=== PATIENT | male | born 1930 | race Caucasian/White ===

== ENCOUNTER 2017-06-20 11:51 | Inpatient (IN) | payer MEDICARE ==
[2017-06-20 12:46] LABS: #Basophils 0.1 thou/uL (0.0-0.2); #Eosinphils 0.1 thou/uL (0.0-0.7); #Lymphocytes 2.1 thou/uL (1.20-3.40); #Monocytes 1.2 thou/uL (0.11-0.59); #Neutrophils 5.7 thou/uL (1.40-6.50); %Basophils 0.6 % (0.0-1.0); %Eosinophils 1.3 % (0.0-10.0); %Lymphocytes 22.7 % (21.0-51.0); %Monocytes 13.3 % (0.0-10.0); %Neutrophils 62.1 % (42.0-75.0); Hemoglobin 15.8 g/dL (14.0-18.0); Mean Corpuscular HGB CONC 33.7 g/dL (32.0-36.0); Mean Corpuscular Hemoglobin 31.2 pg (27.0-31.0); Mean Corpuscular Volume 92.5 fl (80.0-94.0); Mean Platelet Volume 7.1 fL (7.4-10.4); Platelet Count 283 thou/uL (130-400); RBC Distribution Width 12.9 % (11.5-14.5); Red Blood Cell (RBC) Count 5.07 mill/uL (4.70-6.10); White Blood Cell (WBC) Count 9.2 thou/uL (4.8-10.8)
[2017-06-20 13:12] LABS: ALT (SGPT) 11 U/L (8-55); AST (SGOT) 16 U/L (5-34); Albumin 4.1 g/dL (3.4-4.8); Alkaline Phosphatase 102 U/L (40-150); Anion Gap 10 mmol/L (10-20); BUN (Urea Nitrogen) 17 mg/dL (8.4-25.7); Bilirubin, Total 0.6 mg/dL (0.2-1.2); Calc. Creatinine Clearance 0 mL/min (70-130); Calcium 9.7 mg/dL (7.8-10.44); Carbon Dioxide 27 mmol/L (23-31); Chloride 102 mmol/L (98-107); Estimated GFR-MDRD 56; Globulin 3.6 g/dL (2.4-3.5); Glucose 101 mg/dL (83-110); Potassium 4.3 mmol/L (3.5-5.1); Protein, Total 7.7 g/dL (5.8-8.1); Sodium 135 mmol/L (136-145)
--- NOTE | 2017-06-20 15:16 | RAD ---
LEFT HAND THREE VIEWS: History: Left hand pain. Infection. FINDINGS: There is mild joint space narrowing, osteophytosis, and subchondral sclerosis throughout the wrist an d hand, most pronounced at the first carpal metacarpal joint. Subcortical cyst is present at the dist al ulna. Ulnar styloid is intact. Subcortical cysts also involves the lunate on the oblique view. No acute fracture, dislocation, or aggressive osseous erosions are apparent. No soft tissue gas is visib le. Tiny well corticated calcific density overlies the palmar soft tissues on the lateral view, favor ed to be a the level of the proximal fourth metacarpal shaft. This may reflect an old imbedded foreig n body or nonspecific soft tissue calcification. IMPRESSION: Mild osteoarthritic changes left hand. No aggressive osseous destruction is apparent. POS: HILLARY
--- NOTE | 2017-06-20 15:23 | HP ---
PRIMARY CARE PROVIDER: Dr. Monica Johns. Referred to the [facility] by [facility]. HISTORY OF PRESENT ILLNESS: The patient had a minor trauma 2 weeks ago to the dorsum of his left sandra d. The injury healed, then 2 weeks ago, a wound opened up. He has had a combination of antibiotic o intment, oral cephalexin then clindamycin orally. He has had no fever, chills or sweats. He does cardozo ve pain in his left hand with motion. He was seen by his PCP today who referred him to [facility] ergency Department who referred him to [facility]. PAST MEDICAL HISTORY: None. MEDICATIONS: None. ALLERGIES TO MEDICINES: None. 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 FAMILY HISTORY: Mother of old age. Father of old age. SOCIAL HISTORY: x67 years. FULL CODE. , next of kin at bedside along with daughter and [id number]. TOBACCO: None. ALCOHOL: Occasional beer. REVIEW OF SYSTEMS: GENERAL: No headaches, dizziness or fainting. EYES: He has poor vision because his eyelids droop. No double vision or flashing lights. EAR, NOSE, AND THROAT: No ear pain or alfonso inage. No nasal bleeding. No trouble swallowing. CARDIAC: No chest pain, orthopnea or paroxysmal nocturnal dyspnea. RESPIRATORY: No cough, wheezing or asthma. GASTROINTESTINAL: No nausea, vomiti ng, abdominal pain, diarrhea, constipation or melena. GENITOURINARY: No hematuria, dysuria. MUSCUL OSKELETAL: No pain or swelling in his legs or his right arm. PSYCHIATRIC: No anxiety, depression. NEUROLOGIC: No history of strokes, seizures or focal weakness. SKIN: The aforementioned area of o pen wound and infection on his left hand. HEME/LYMPH: No tender or swollen lymph nodes in axilla, i nguinal or cervical area. PHYSICAL EXAMINATION: GENERAL: He is an alert, oriented, cooperative gentleman in no distress whatsoever and making jokes with me. VITAL SIGNS: Blood pressure 135/88, pulse 75, respirations 20, temperature 97.9 and 98.4. HEENT: Examination of his head, eyes, ears, nose, and throat reveal pupils are equal, round, reactiv e with bilateral arcus, sclerae white. Extraocular movements are intact. Tympanic membranes clear. Nose is clear. Throat is clear. NECK: Supple, without jugular venous distention, adenopathy or thyromegaly. CHEST: Clear to auscultation and percussion. HEART: Regular rate and rhythm. First and second heart sounds are clear. There are no appreciated murmurs or gallops. ABDOMEN: Soft, bowel sounds are normal. There is no hepatosplenomegaly, no mass, no rebound. EXTREMITIES: Reveal no cyanosis, clubbing or edema. PULSES: Carotid, radial, femoral, and dorsalis pedis pulses intact. SKIN: Warm and dry. He has a lesion on the dorsum of his left hand. This is erythematous and swoll en about 3 inches in diameter with multiple denuded areas. There are some small areas of skin i n the middle of the wound. NEUROLOGIC: Cranial nerves II-XII are intact. Deep tendon reflexes symmetric. Moves all extremitie s. LABORATORY DATA AND X-RAY FINDINGS: Fairly unremarkable. Comp metabolic profile reveals only sodium 135, otherwise normal. CBC is normal. No x-rays or EKGs were presented except for a hand x-ray wit h mild degenerative change. I see no evidence of lytic or erosive lesions. ADMITTING DIAGNOSIS: Cellulitis/abscess of the left hand, refractory to outpatient antibiotic therap y. Blood cultures have been drawn in the emergency room. I have started him on a combination of cef epime 2 grams q.12 hours and vancomycin 1 gram q.12 hours to be monitored by pharmacy. I have discus sed this case with Dr. Cesar who will see him in consultation.
[2017-06-20 15:28] VITALS: BMI 23.6
[2017-06-20] MEDS ORDERED: Zolpidem Tartrate 5 MG TAB PO PRN (15:33)
[2017-06-20] MEDS ORDERED: Ondansetron HCl/PF 4 MG/2 ML Vial IVP PRN (15:33)
[2017-06-20] MEDS ORDERED: Acetaminophen 325 MG TAB PO PRN (15:33)
[2017-06-20] MEDS ORDERED: CEFEPIME IVPB PRN (16:37)
[2017-06-20] MEDS: Cefepime 2 GM, Syringe 2.5 ML in Sodium Chloride 0.9% 10 ML SLOW IVP SCH (16:58)
--- NOTE | 2017-06-20 17:14 | CON ---
DATE OF CONSULTATION: 06/20/2017 REASON FOR CONSULTATION: Left hand infection. HISTORY OF PRESENT ILLNESS: This is an 87-year-old, first admission to [facility] with a history of no past medical problems except for osteoarthritis, who sustained an injury to his left hand from a barbed wire about 4 weeks ago, and then 2 weeks ago, noticed a progressively worsening wound with initially itching and then pain, redness, swelling, and drainage. The patient failed outpatient oral antimicrobial therapy with Bactrim, cephalexin, and clindamycin, and has been admitted for management. He has been started on broad-spectrum coverage with intravenous cefepime and vancomycin. No headaches, visual symptoms, sore throat, odynophagia, dysphagia, no cough or sputum production or chest pain. No abdominal pain, diarrhea, or genitourinary symptoms. No other joint symptoms. No neurological symptoms. PAST MEDICAL HISTORY: Otherwise, negative except for osteoarthritis, prior right knee replacement. ALLERGIES: None. FAMILY HISTORY: Noncontributory. No disease in the family. SOCIAL HISTORY: Never a smoker. Occasional beer drinker. PHYSICAL EXAMINATION: VITAL SIGNS: Normal. SKIN EXAM: Shows the area of erythema, plaque-like distribution, in the left hand dorsal aspect with areas of ulceration and a serosanguineous drainage, which is moderate. The lesion encompasses about half of the dorsal aspect of left hand towards the thumb, second and third digits. No lymphadenopathy. HEENT EXAM: Noncontributory. NECK: Supple. LUNGS: Clear to auscultation and percussion. HEART: S1 and S2, regular rate. ABDOMEN: Soft, not distended or tender. No ascites. No bladder distention. EXTREMITIES: Moves all extremities equally. Limitations imposed by the left hand inflammatory process. He has a hearing impairment, but otherwise cognitive function is normal. LABORATORY DATA: His chemistry is fairly unremarkable, and the CBC is fairly unremarkable with a normal differential except for some monocytosis. No other tests have been submitted. He had a CT abdomen and pelvis from 04/2013 with calcifications, left and right diaphragmatic leaflets; calculi, left kidney, nonobstructing; and some prostatic hypertrophy. ASSESSMENT: A fairly healthy 87-year-old man, who has known chronic infection, left hand, following injury 4 weeks ago. DISCUSSION: Differential diagnosis includes usual bacterial pathogens such as Staphylococcus aureus/MRSA, gram negative rods, Streptococci, but the main concern here is with an atypical pathogen such as one of the atypical mycobacterial pathogens and fungal organisms. An atypical mycobacteria would be the main concern. Swab samples are not useful for diagnosis of mycobacterial infections and we would need a tissue sample, and we will have evaluation by a hand surgeon to see if he is not going to need I and D until obtained some tissue sampling for mycobacterial cultures and fungal cultures. We will submit a routine sample for routine bacterial cultures. RAHUL
[2017-06-20] MEDS ORDERED: Cefepime 2 GM in Sodium Chloride 0.9% 100 ML IVPB SCH (21:00)
[2017-06-20] MEDS ORDERED: Vancomycin HCl 1 GM in Sodium Chloride 0.9% 250 ML 250 ML IVPB SCH (21:00)
[2017-06-21] MEDS: Cefepime 2 GM, Syringe 2.5 ML in Sodium Chloride 0.9% 10 ML SLOW IVP SCH ×2 (04:50→15:41)
--- NOTE | 2017-06-21 08:32 | PDOC.PN ---
- Subjective Encounter Start Date: 06/21/17 Encounter Start Time: 08:30 Subjective: no complaints - Objective Resuscitation Status: Resuscitation Status FULL:Full Resuscitation MAR Reviewed: Yes Vital Signs & Weight: Vital Signs (12 hours) Temp Pulse Resp BP Pulse Ox 06/21/17 04:44 98.5 F 71 20 110/67 95 06/21/17 00:46 98.0 F 76 20 122/71 97 Result Diagrams: 06/20/17 12:28 06/20/17 12:28 Phys Exam - Physical Examination Neck: no JVD Respiratory: clear to auscultation bilateral Cardiovascular: RRR, no significant murmur Gastrointestinal: soft, non-tender Musculoskeletal: no edema bandaged left hand Dx/Plan (1) Cellulitis and abscess of hand Code(s): L03.119 - CELLULITIS OF UNSPECIFIED PART OF LIMB; L02.519 - CUTANEOUS ABSCESS OF UNSPECIFIED HAND Status: Acute - Plan hand surgery tody with Bx -: cont vancomycin,cefepime iv * .
[2017-06-21] MEDS ORDERED: Enoxaparin Sodium 40 MG/0.4 ML SYRINGE SC SCH (09:00)
[2017-06-21] MEDS ORDERED: Vancomycin HCl 1.25 GM in Sodium Chloride 0.9% 250 ML 250 ML IVPB SCH (13:00)
[2017-06-21] MEDS ORDERED: Ondansetron HCl/PF 4 MG/2 ML Vial ONE (17:17)
[2017-06-21] MEDS ORDERED: PROPOFOL 200 MG/20 ML VIAL ONE (17:17)
[2017-06-21] MEDS ORDERED: Dexamethasone 20 MG/5 ML VIAL ONE (17:17)
[2017-06-21] MEDS ORDERED: Bupivacaine 0.5% 10 ML VIAL ONE (17:21)
[2017-06-21] MEDS ORDERED: Lidocaine 1% w/Epinephrine 1:200K 30 ML VIAL ONE (17:21)
[2017-06-21] MEDS ORDERED: Bacitracin Zinc Ointment 30 gm TUBE ONE (17:21)
[2017-06-21] MEDS ORDERED: Thrombin 5000 UNITS/5 ML VIAL ONE (17:21)
[2017-06-21] MEDS ORDERED: Sodium Chloride 0.9% 30 ML ONE (17:22)
[2017-06-21] MEDS ORDERED: Meperidine HCl/PF 25 MG/ML VIAL ONE (17:48)
[2017-06-21] MEDS ORDERED: Fentanyl 250 MCG/5 ML VIAL ONE (19:13)
[2017-06-21] MEDS ORDERED: Promethazine HCl 25 MG/ML VIAL SLOW IVP PRN (19:17)
[2017-06-21] MEDS ORDERED: Ondansetron HCl/PF 4 MG/2 ML Vial IVP PRN (19:17)
[2017-06-21] MEDS ORDERED: Promethazine HCl 25 MG/ML VIAL IM PRN (19:17)
[2017-06-21] MEDS ORDERED: Ondansetron HCl/PF 4 MG/2 ML Vial IV PRN (19:39)
[2017-06-21] MEDS ORDERED: traMADol HCl 50 MG TAB PO PRN (19:39)
[2017-06-21] MEDS ORDERED: Milk Of Magnesia 30 ML UDCUP PO PRN (19:39)
[2017-06-21] MEDS ORDERED: HYDROcodone/Acetaminophen 10/325 mg Tablet PO PRN (19:39)
[2017-06-21] MEDS ORDERED: Communication Order-Pharmacy FS SCH (19:45)
[2017-06-21] MEDS: Morphine 5 MG/ML SYRINGE IVP PRN (20:29)
[2017-06-21] MEDS: HYDROcodone/Acetaminophen 5/325 mg Tablet PO PRN (22:56)
[2017-06-21] MEDS: Ketorolac Tromethamine 30 MG/ML VIAL IVP SCH (23:58)
[2017-06-22] MEDS: Cefepime 2 GM, Syringe 2.5 ML in Sodium Chloride 0.9% 10 ML SLOW IVP SCH ×2 (04:55→16:02)
[2017-06-22 05:26] LABS: #Lymphocytes 0.9 thou/uL (1.20-3.40); #Monocytes 0.3 thou/uL (0.11-0.59); #Neutrophils 5.6 thou/uL (1.40-6.50); %Basophils 0.2 % (0.0-1.0); %Eosinophils 0.2 % (0.0-10.0); %Lymphocytes 13.2 % (21.0-51.0); %Monocytes 4.4 % (0.0-10.0); %Neutrophils 82.1 % (42.0-75.0); Hemoglobin 13.7 g/dL (14.0-18.0); Mean Corpuscular HGB CONC 33.6 g/dL (32.0-36.0); Mean Corpuscular Hemoglobin 31.8 pg (27.0-31.0); Mean Corpuscular Volume 94.6 fl (80.0-94.0); Mean Platelet Volume 7.7 fL (7.4-10.4); Platelet Count 274 thou/uL (130-400); RBC Distribution Width 12.6 % (11.5-14.5); Red Blood Cell (RBC) Count 4.31 mill/uL (4.70-6.10); White Blood Cell (WBC) Count 6.8 thou/uL (4.8-10.8)
[2017-06-22 05:28] LABS: INR-International Normal Ratio 1.1; Prothrombin Time 14.3 SEC (12.0-14.7)
[2017-06-22 05:58] LABS: ALT (SGPT) 8 U/L (8-55); AST (SGOT) 15 U/L (5-34); Albumin 3.4 g/dL (3.4-4.8); Alkaline Phosphatase 83 U/L (40-150); Anion Gap 11 mmol/L (10-20); BUN (Urea Nitrogen) 18 mg/dL (8.4-25.7); Bilirubin, Total 0.4 mg/dL (0.2-1.2); Calc. Creatinine Clearance 62 mL/min (70-130); Calcium 8.7 mg/dL (7.8-10.44); Carbon Dioxide 23 mmol/L (23-31); Chloride 103 mmol/L (98-107); Estimated GFR-MDRD 82; Globulin 2.8 g/dL (2.4-3.5); Glucose 143 mg/dL (83-110); Protein, Total 6.2 g/dL (5.8-8.1); Sodium 132 mmol/L (136-145)
[2017-06-22] MEDS: Ketorolac Tromethamine 30 MG/ML VIAL IVP SCH ×3 (06:07→17:48)
--- NOTE | 2017-06-22 06:36 | OP ---
PREOPERATIVE DIAGNOSES: Left dorsal hand abscess and abscess cavity, finding the abscess cavity with marked necrotic skin, dermis, epidermis, and fat. No necrotic tendons. Most of the paratenon intac t even after debridement. POSTOPERATIVE DIAGNOSES: Left dorsal hand abscess and abscess cavity, finding the abscess cavity wit h marked necrotic skin, dermis, epidermis, and fat. No necrotic tendons. Most of the paratenon inta ct even after debridement. PROCEDURE PERFORMED: Deep debridement of wound, left hand abscess cavity, approximately 8.5 cm x 6 c m with cheesy caseating-appearing necrotic tissue. SPECIMEN SENT: Abscess cavity. Multiple specimens to include AFB, fungus, aerobic, and anaerobic. ESTIMATED BLOOD LOSS: 100 mL. INDICATIONS: The patient reports that over a month ago, he had some type of penetrating wound while in the outside environment, perhaps in water, and 2 weeks later he noticed infection for which he was treated with oral antibiotics for 7 days, but the infection persisted. He noticed the wound opened and started draining exudate 2 days prior to admission. He had already been treated with antibiotics and this had failed. DESCRIPTION OF PROCEDURE: After successful general LMA technique MAC anesthesia, the patient had had the limb prepped and draped. Of note, the patient had been placed on Lovenox while here in the hosp ital for over 24 hours. We found what appeared to be the soft tissue, there was necrotic edge, opened this to include a very thick 4 mm abscess cavity circumferentially in this entire 8.5 x 6 cm area overlying tendons and cut aneous nerves. We then attempted to save as many cutaneous nerves that were still visible, stripped and debrided the deep abscess cavity using a combination of techniques: A. Excisional technique. B . We used a Bowman blade, a 11-blade knife, tenotomy scissors, Adson, and curette. C. We went down to the paratenon, but did not violate it, and that was our depth; indeed we had multiple caseating-t ype necrotic material. Once we had finished the debridement, and had a rim of only normal tissue underneath which was no fat necrosis or abscess cavity, the entire wound was now 8.5 x 6 cm. We irrigated this with 3 liters of normal saline with antibiotics inside and Pulsavac pressure. We then released the tourniquet, which was inflated for a total of 18 minutes and obtained hemostasis, but because he had been on Lovenox, this involved multiple uses of clamps, clips, and then being applied. We then obtained hemosta sis, placed thrombin-soaked Gelfoam on the wound, Adaptic, 4 x 4s, Kerlix, ABD, and Donnie wrap. The pa tient left the operating room without complication.
--- NOTE | 2017-06-22 08:55 | PDOC.PN ---
- Subjective Encounter Start Date: 06/22/17 Encounter Start Time: 08:52 Subjective: ready to go home - Objective Resuscitation Status: Resuscitation Status FULL:Full Resuscitation MAR Reviewed: Yes Vital Signs & Weight: Vital Signs (12 hours) Temp Pulse Resp BP Pulse Ox 06/22/17 06:21 97.3 F L 66 16 117/60 97 06/22/17 00:05 77 94 L 06/22/17 00:00 98.7 F 69 16 116/61 95 06/21/17 22:16 85 125/64 92 L 06/21/17 21:15 82 16 108/65 96 Result Diagrams: 06/22/17 04:36 06/22/17 04:36 Phys Exam - Physical Examination Neck: no JVD Respiratory: clear to auscultation bilateral Cardiovascular: RRR, no significant murmur Gastrointestinal: soft, positive bowel sounds Musculoskeletal: no edema L hand bandaged Dx/Plan (1) Cellulitis and abscess of hand Code(s): L03.119 - CELLULITIS OF UNSPECIFIED PART OF LIMB; L02.519 - CUTANEOUS ABSCESS OF UNSPECIFIED HAND Status: Acute - Plan * .
--- NOTE | 2017-06-22 08:56 | PDOC.EVN ---
Event Note - Event Note Event Note: missed plan on PN1. cont iv antibx,2. cont wound care, 3. discuss with ID
[2017-06-22] MEDS ORDERED: TETANUS AND DIPHTHERIA TOX/PF 0.5 ML DISP.SYRIN IM SCH (09:00)
[2017-06-22] MEDS: Vancomycin HCl 1.25 GM in Sodium Chloride 0.9% 250 ML 250 ML IVPB SCH (13:43)
[2017-06-22] MEDS ORDERED: TETANUS AND DIPHTHERIA TOX/PF 0.5 ML DISP.SYRIN IM ONE (16:30)
[2017-06-22] MEDS: Morphine 5 MG/ML SYRINGE IVP PRN (17:48)
[2017-06-23] MEDS: Ketorolac Tromethamine 30 MG/ML VIAL IVP SCH (00:28)
[2017-06-23] MEDS: Vancomycin HCl 1.25 GM in Sodium Chloride 0.9% 250 ML 250 ML IVPB SCH ×2 (01:26→12:21)
[2017-06-23] MEDS: Cefepime 2 GM, Syringe 2.5 ML in Sodium Chloride 0.9% 10 ML SLOW IVP SCH ×2 (05:10→17:53)
--- NOTE | 2017-06-23 06:37 | PRG ---
DATE OF SERVICE: 06/22/2017 HISTORY: Mr. Garber is sitting by the bedside, he is very alert, awake, better spirits today. The patient had surgical intervention. He denies any headaches, no respiratory symptoms, no abdominal pa in. PHYSICAL EXAMINATION: VITAL SIGNS: Temperature has been normal throughout the hospital stay. Other vital signs are not re markable. O2 sats are little bit down to 94%. GENERAL: In no distress. LUNGS: Clear. HEART: S1, S2, regular rate. ABDOMEN: Soft. EXTREMITIES: Left hand with bulky dressing which was not removed. LABORATORY DATA: White cell count 6.8, hemoglobin 13.7, platelets 274, 82% neutrophils. Chemistry w as fairly unremarkable, slight hyponatremia. Microbiology: All the samples submitted for routine AF B and fungal cultures pending. The Gram stain from the hand drainage; no WBCs seen, no epithelial ce lls, no organisms seen. The pathology from the surgical specimen is pending. The operative note was reviewed by Dr. Allison. There is necrotic edge of the soft tissues. This w as opened to include a very thick abscess cavity and the entire 8.5 x 6 cm area overlying tendon and cutaneous nerves, normal tissue was left on the knees. No evidence of fat necrosis after debridement . This was irrigated and the area was covered. ASSESSMENT AND DISCUSSION: Chronic infection left hand status post surgical debridement. We will co ntinue following culture results. Continue current antimicrobial therapy. Follow up pathology and t hen define a subsequent regimen. AFB cultures may take weeks for results to be available, evidently if we have other quicker results available for pyogenic organisms then I will adjust therapy accordin gly.
--- NOTE | 2017-06-23 11:55 | PDOC.PN ---
- Subjective Encounter Start Date: 06/23/17 Encounter Start Time: 11:50 Subjective: FINE - Objective Resuscitation Status: Resuscitation Status FULL:Full Resuscitation MAR Reviewed: Yes Vital Signs & Weight: Vital Signs (12 hours) Temp Pulse Resp BP Pulse Ox 06/23/17 08:00 97.6 F 66 16 134/84 96 Weight Admit Weight 169 lb Weight 169 lb I&O: 06/22/17 06/23/17 06/24/17 06:59 06:59 06:59 Intake Total 450 Balance 450 Result Diagrams: 06/22/17 04:36 06/22/17 04:36 Phys Exam - Physical Examination Neck: no JVD Respiratory: clear to auscultation bilateral Cardiovascular: RRR, no significant murmur Gastrointestinal: soft, non-tender Musculoskeletal: no edema Dx/Plan (1) Cellulitis and abscess of hand Code(s): L03.119 - CELLULITIS OF UNSPECIFIED PART OF LIMB; L02.519 - CUTANEOUS ABSCESS OF UNSPECIFIED HAND Status: Acute - Plan path pending, C&S pending -: cont wound care, antimicrobials * .
--- NOTE | 2017-06-23 19:32 | PRG ---
DATE OF SERVICE: 06/23/2017 SUBJECTIVE: Mr. Garber is feeling well, very little pain in the left hand. No headaches, no respir atory symptoms or abdominal pain, no diarrhea, no genitourinary symptoms. OBJECTIVE: VITAL SIGNS: Temperature is normal. Other vital signs are normal. GENERAL: Awake, alert, and oriented. LUNGS: Clear. HEART: S1, S2, regular rate. ABDOMEN: Soft, not distended. LABORATORY DATA: White cell count 6.8, hemoglobin 13.7, platelets 274, 82% neutrophils. Chemistry w ith glucose 143, globulin 3.6 and 2.8. Yeast retrieved from the sample that I submitted from the flu id drainage and there is more likely reflects contamination of the sample. It is probably going to t urn out to be a Roshni species, not the pathogen. I believe the pathogen is going to be retrieved f rom the sample submitted by Dr. Allison, but that will probably take a few weeks for to be available . The patient will be able to be discharged probably tomorrow. I am going to write for him. Abraham mycin and minocycline and follow up him in 2-3 weeks in the outpatient setting.
[2017-06-23] MEDS: Clarithromycin 500 MG TAB PO SCH (21:08)
[2017-06-24 00:34] LABS: Vancomycin, Trough 17.7 ug/mL
[2017-06-24] MEDS: Cefepime 2 GM, Syringe 2.5 ML in Sodium Chloride 0.9% 10 ML SLOW IVP SCH ×2 (04:49→15:51)
[2017-06-24] MEDS: Clarithromycin 500 MG TAB PO SCH ×2 (10:07→20:53)
--- NOTE | 2017-06-24 12:08 | PDOC.PN ---
- Subjective Encounter Start Date: 06/24/17 Encounter Start Time: 12:06 Subjective: no complaints - Objective Resuscitation Status: Resuscitation Status FULL:Full Resuscitation MAR Reviewed: Yes Vital Signs & Weight: Vital Signs (12 hours) Temp Pulse Resp BP Pulse Ox 06/24/17 08:00 97.8 F 73 16 97 06/24/17 07:28 97.8 F 73 16 138/82 97 Weight Admit Weight 169 lb Weight 169 lb I&O: 06/23/17 06/24/17 06/25/17 06:59 06:59 06:59 Intake Total 450 2070 180 Balance 450 2070 180 Result Diagrams: 06/22/17 04:36 06/22/17 04:36 Phys Exam - Physical Examination Neck: no JVD Respiratory: clear to auscultation bilateral Cardiovascular: RRR, no significant murmur Gastrointestinal: soft, non-tender, positive bowel sounds Musculoskeletal: no edema bandaged left hand Dx/Plan (1) Cellulitis and abscess of hand Code(s): L03.119 - CELLULITIS OF UNSPECIFIED PART OF LIMB; L02.519 - CUTANEOUS ABSCESS OF UNSPECIFIED HAND Status: Acute - Plan cont iv antibx -: possible skin graft next week -: ID cardozo given Rx for biaxin and minocycline * .
[2017-06-25] MEDS: Cefepime 2 GM, Syringe 2.5 ML in Sodium Chloride 0.9% 10 ML SLOW IVP SCH ×2 (04:33→17:17)
[2017-06-25] MEDS: Clarithromycin 500 MG TAB PO SCH ×2 (09:17→20:17)
--- NOTE | 2017-06-25 16:14 | PDOC.PN ---
- Subjective Encounter Start Date: 06/25/17 Encounter Start Time: 16:13 Subjective: Seen and examined feeling ok - Objective Resuscitation Status: Resuscitation Status FULL:Full Resuscitation Vital Signs & Weight: Vital Signs (12 hours) Temp Pulse Resp BP Pulse Ox 06/25/17 07:40 98 F 84 16 112/62 97 06/25/17 07:16 98.4 F 74 18 Weight Admit Weight 169 lb Weight 169 lb I&O: 06/24/17 06/25/17 06/26/17 06:59 06:59 06:59 Intake Total 2069 540 480 Balance 2069 540 480 Result Diagrams: 06/22/17 04:36 06/22/17 04:36 Phys Exam - Physical Examination Constitutional: NAD HEENT: PERRLA, moist MMs, sclera anicteric, TM's clear, oral pharynx no lesions Neck: no nodes, no JVD, supple, full ROM Respiratory: no wheezing, no rales, no rhonchi, clear to auscultation bilateral Cardiovascular: RRR, no significant murmur, no rub Gastrointestinal: soft, non-tender, no distention, positive bowel sounds Musculoskeletal: no edema, pulses present Dx/Plan (1) Cellulitis Code(s): L03.90 - CELLULITIS, UNSPECIFIED Status: Acute (2) Cellulitis and abscess of hand Code(s): L03.119 - CELLULITIS OF UNSPECIFIED PART OF LIMB; L02.519 - CUTANEOUS ABSCESS OF UNSPECIFIED HAND Status: Acute - Plan plan discussed w/ family, continue antibiotics, public health social worker Possible debridement and skin grafting tommorrow * .
[2017-06-25 17:10] LABS: Fungus Stain Final report (.); Fungus Stain Result 1 Yeast observed (.)
[2017-06-26] MEDS: Cefepime 2 GM, Syringe 2.5 ML in Sodium Chloride 0.9% 10 ML SLOW IVP SCH ×2 (04:02→16:15)
[2017-06-26] MEDS ORDERED: Propofol 500 MG/50 ML VIAL ONE (06:55)
[2017-06-26] MEDS ORDERED: PROPOFOL 0 ML ONE (06:55)
[2017-06-26] MEDS ORDERED: Thrombin 5000 UNITS/5 ML VIAL ONE (07:57)
[2017-06-26] MEDS ORDERED: Sodium Chloride 0.9% 0 ML ONE (07:57)
[2017-06-26] MEDS ORDERED: Bacitracin Zinc Ointment 30 gm TUBE ONE (07:57)
[2017-06-26] MEDS ORDERED: Lidocaine 1% (PF) 30 ML VIAL ONE (07:57)
[2017-06-26] MEDS ORDERED: Bupivacaine 0.5% 10 ML VIAL ONE (07:57)
[2017-06-26] MEDS ORDERED: Fentanyl 250 MCG/5 ML VIAL ONE (08:00)
[2017-06-26] MEDS ORDERED: Famotidine/PF 20 mg/2ml Vial ONE (08:00)
[2017-06-26] MEDS ORDERED: Promethazine HCl 25 MG/ML VIAL SLOW IVP PRN (08:58)
[2017-06-26] MEDS ORDERED: Meperidine HCl/PF 25 MG/ML VIAL SLOW IVP PRN (08:58)
[2017-06-26] MEDS ORDERED: Ondansetron HCl/PF 4 MG/2 ML Vial IVP PRN (08:58)
--- NOTE | 2017-06-26 09:29 | PDOC.PN ---
- Subjective Encounter Start Date: 06/26/17 Encounter Start Time: 09:27 Subjective: Seen and examined feeling ok with no new comp-laint - Objective Resuscitation Status: Resuscitation Status FULL:Full Resuscitation Vital Signs & Weight: Weight Admit Weight 169 lb Weight 169 lb I&O: 06/25/17 06/26/17 06/27/17 06:59 06:59 06:59 Intake Total 540 810 Balance 540 810 Result Diagrams: 06/22/17 04:36 06/22/17 04:36 Phys Exam - Physical Examination Constitutional: NAD HEENT: PERRLA, moist MMs, sclera anicteric, TM's clear, oral pharynx no lesions Neck: no nodes, no JVD, supple, full ROM Respiratory: no wheezing, no rales, no rhonchi, clear to auscultation bilateral Cardiovascular: RRR, no significant murmur, no rub Gastrointestinal: soft, non-tender, no distention, positive bowel sounds Musculoskeletal: no edema, pulses present Dx/Plan (1) Cellulitis Code(s): L03.90 - CELLULITIS, UNSPECIFIED Status: Acute (2) Cellulitis and abscess of hand Code(s): L03.119 - CELLULITIS OF UNSPECIFIED PART OF LIMB; L02.519 - CUTANEOUS ABSCESS OF UNSPECIFIED HAND Status: Acute - Plan plan discussed w/ family, continue antibiotics For possible debridement and skin grafting today * .
[2017-06-26] MEDS: Clarithromycin 500 MG TAB PO SCH ×2 (10:22→20:50)
[2017-06-26] MEDS: HYDROcodone/Acetaminophen 5/325 mg Tablet PO PRN (10:23)
[2017-06-26] MEDS ORDERED: PROPOFOL 200 MG/20 ML VIAL ONE (15:24)
[2017-06-26] MEDS ORDERED: PHENYLEPHRINE-NS 100 MCG/ML 10 ML SYRINGE ONE (15:24)
[2017-06-26] MEDS ORDERED: Ketorolac Tromethamine 30 MG/ML VIAL ONE (15:24)
[2017-06-26] MEDS ORDERED: Lidocaine 1% PF 5 ML VIAL ONE (15:24)
[2017-06-26] MEDS ORDERED: Dexamethasone 20 MG/5 ML VIAL ONE (15:24)
[2017-06-26] MEDS ORDERED: Ondansetron HCl/PF 4 MG/2 ML Vial ONE (15:24)
--- NOTE | 2017-06-27 00:39 | OP ---
DATE OF PROCEDURE: 06/26/2017 PREOPERATIVE DIAGNOSIS: Open wound, approximately 8.5 x 6.5 cm left dorsal hand. FINDINGS: There was approximately 2 cm long area by 5 mm exposed extensor tendon but had excellent p aratenon. PROCEDURE PERFORMED: Split thickness skin graft was excellent while remaining area had no infection. No wound edge necrosis. No evidence of what has proven to be a positive yeast culture with negativ e bacterial and Mycobacterium to date cultures. DESCRIPTION OF PROCEDURE: After successful general endotracheal anesthesia, the patient's limb was p repped and draped. The patient then had the wound inspected, prepped and draped the arm as well as t he ipsilateral thigh. We then lifted up the wound edges, found no infection. We did a small amount of debridement on the wound edge. It was possible friable material, but no necrosis or gross infecti on was seen. We saw two separate 1 cm areas by 5 mm exposed extensor tendon, but there was paratenon seen on the loupe magnification. The patient had the wound measured, approximately 8.5 x 6.5 cm, we made appropriate measurement on th e thigh. It was also prepped and draped ipsilateral. Then, using a power dermatome set at 0.20 cm t hickness. We then harvested the skin graft, meshed at 1:1.5, placed it along the donor site with sta ples and bolstered appropriately with minimal also dressing and bijan. We covered the donor site m edially with thrombin-soaked Gelfoam and once we finished the procedure with upper extremity includin g bulky dressing. There was no bleeding through the Gelfoam so we covered that with triple layer Teg aderm and a 6-inch Donnie wrap. The patient left the operating room without complications.
[2017-06-27] MEDS: Cefepime 2 GM, Syringe 2.5 ML in Sodium Chloride 0.9% 10 ML SLOW IVP SCH (03:38)
[2017-06-27] MEDS: Clarithromycin 500 MG TAB PO SCH (09:20)
[2017-06-27 14:32] VITALS: BP 129/78; TEMP 97.9
--- NOTE | 2017-06-28 14:13 | DIS ---
DATE OF ADMISSION: 06/20/2017 DATE OF DISCHARGE: 06/27/2017 ADMITTING DIAGNOSES: Wrist pain, post trauma, left hand cellulitis and abscess, as well as a history of a right total knee replacement. DISCHARGE DIAGNOSES: Abscess I&D status post surgical debridement, left hand pain resolved, history of arthritis, status post right knee total knee replacement. HOSPITAL COURSE: This was an 87-year-old gentleman, who was presenting to the ER after a minor traum a wound 2 weeks earlier to arrival. Patient apparently was noted to have a significant pain on motio n of the left hand and on image studies was found to have a minor abscess located in the area. Etienne cruz was evaluated by Internal Medicine, Infectious Disease, as well as Orthopedic Surgery. The patien t had blood cultures performed, which were negative at 5 days. The patient also had wound cultures p erformed, which were negative. The patient was placed on antibiotics and treated with IV antibiotics up until debridement. Post-debridement, the patient was to be discharged home with p.o. antibiotics followed up with ID as well as Orthopedic Surgery and his PCP in a week. Prescriptions provided for antibiotics by Infectious Disease. Pain medications to be taken over the counter. Patient states t hat he does not want any prescriptions for pain medication. Vital signs were stable upon at time of discharge, patient's condition was stable as well. DISPOSITION: Home. MEDICATIONS: See MAR. DIET: Low fat, low calorie, high fiber. ACTIVITY: As tolerated. Avoid usage of left hand until follow up with Orthopedic Surgery and keep h and clean, dry, and avoid usage. CONDITION: Stable. PROGNOSIS: Good. FOLLOWUP: With PCP, Infectious Disease, and orthopedic surgery within a week or two. Case and plan discussed with the patient and family at length. They understand and agree with this p luis alberto.
[2017-07-07 17:13] LABS: Fungus Culture Final report (.)
== END 2017-06-27 14:38 | disposition home or self-care (01) | DRG 574 ==
LOC: ERS 11:51 → T4-B 14:35
PROVIDERS: ADMIT Internal Medicine; ATTEND Internal Medicine
PROC: 3E0234Z Introduction of Serum, Toxoid and Vaccine into Muscle, Percutaneous Approach (ICD-10-PCS; 2017-06-22)
PROC: 0LB80ZZ Excision of Left Hand Tendon, Open Approach (ICD-10-PCS; principal; 2017-06-26)
PROC: 0HRGX74 Replacement of Left Hand Skin with Autologous Tissue Substitute, Partial Thickness, External Approach (ICD-10-PCS; 2017-06-26)
PROC: 0HBJXZZ Excision of Left Upper Leg Skin, External Approach (ICD-10-PCS; 2017-06-26)
DX: L02.512 Cutaneous abscess of left hand (principal); L03.114 Cellulitis of left upper limb; X58.XXXA Exposure to other specified factors, initial encounter; Y93.89 Activity, other specified; Z23 Encounter for immunization
CPT/HCPCS: 36415; 80053; 80202; 83605; 85025; 85610; 85730; 87040; 87070; 87102; 87106; 87116; 87205; 87206; 88305; 96365; 96366; J2270; A4216; J0131; J0692; J1100; J1650; J1885; J2001; J2175; J2405; J2704; J3010; J3370; J3490; J7050; S0028